=== PATIENT | female | born 1950 | race African-American/Black ===

== ENCOUNTER 2018-11-06 23:59 | Observation (INO) | payer MEDICARE, OTHER ==
[~2018-11-06] VITALS: Ht 162.6 cm; Wt 102.5 kg
[~2018-11-06 23:59] MED LIST: HYDROCODONE-AP1 EAC1 PO; INDERAL LA160 M1 PO; LORATADINE10 M2 PO; Z B COMPLEX PO; Z LORATADINE; Z VITAMIN D PO; Z.0.AMLODIPINE BESYL PO; Z.0.DIOVAN HCT 3201 PO; Z.0.TIZANIDINE HCL4 PO; Z.2.HYDROCODON-ACE1
[2018-11-07] VITALS (8 sets, daily range): BP systolic 100–142; BP diastolic 49–75
--- NOTE | 2018-11-07 01:48 | Diagnostic Imaging Report ---
EXAM: CHEST 2 VIEWS, PA and lateral INDICATION: Chest pain, shortness of breath COMPARISON: None FINDINGS: LINES/TUBES: None LUNGS: No consolidations or edema. PLEURA: No effusions or pneumothorax. HEART AND MEDIASTINUM: Normal size and contour. BONES AND SOFT TISSUES: No acute findings. IMPRESSION: No acute thoracic abnormality. Signed by: Dr. Ekta Donaldson M.D. on 11/07/2018 1:45 AM
[2018-11-07 02:26] LABS: INR 0.92; PROTHROMBIN TIME 13.2 seconds (11.9-14.5)
[2018-11-07 02:27] LABS: PARTIAL THROMBOPLASTIN TIME 31.9 seconds (23.8-35.5)
[2018-11-07 02:35] LABS: ALANINE AMINOTRANSFERASE 12 IU/L (0-55); ALBUMIN 3.6 g/dL (3.5-5.0); ALKALINE PHOSPHATASE 67 IU/L (40-150); BLOOD UREA NITROGEN 21 mg/dL (7-26); BUN/CREATININE RATIO 19 (6-25); CALCIUM 9.4 mg/dL (8.4-10.2); CARBON DIOXIDE 26 mmol/L (22-29); CREATINE KINASE 85 IU/L (29-168); CREATININE, SERUM 1.08 mg/dL (0.57-1.11); EST GLOMERULAR FILTRATION RATE > 60 ML/MIN (60-); GLUCOSE 101 mg/dL (74-118); LIPASE 10 U/L (8-78)
[2018-11-07] MEDS ORDERED: ASPIRIN 81 MG CHEW TAB PO ONE (02:45)
[2018-11-07 02:46] LABS: BASOPHILS % 0.4 % (0.0-1.0); EOSINOPHILS # (AUTO) 0.2 (0.0-0.4); HEMATOCRIT 37.9 % (34.2-44.1); HEMOGLOBIN 12.2 g/dL (12.0-16.0); LYMPHOCYTES % 21.1 % (18.0-39.1); MEAN CORPUSCULAR HEMOGLOBIN 26.2 pg (28-32); MEAN CORPUSCULAR HGB CONC 32.2 g/dL (31-35); MEAN CORPUSCULAR VOLUME 81.5 fL (81-99); MONOCYTES # (AUTO) 0.8 (0.2-0.8); MONOCYTES % 8.8 % (4.4-11.3); NEUTROPHILS # (AUTO) 6.4 (2.1-6.9); NEUTROPHILS % 66.8 % (38.7-80.0); PLATELET COUNT 208 x10e3/uL (140-360); RED BLOOD COUNT 4.65 x10e6/uL (3.6-5.1); RED CELL DISTRIBUTION WIDTH 15.2 % (11.7-14.4)
[2018-11-07 03:00] LABS: ANION GAP 16.2 mmol/L (8-16); CHLORIDE 104 mmol/L (98-107); MAGNESIUM 2.5 MG/DL (1.3-2.1); POTASSIUM 4.2 mmol/L (3.5-5.1); SODIUM 141 mmol/L (136-145)
[2018-11-07 03:20] LABS: BACTERIA,URINE MODERATE /HPF; BILIRUBIN,URINE NEGATIVE (NEGATIVE); CLARITY,URINE CLEAR (CLEAR); COLOR,URINE YELLOW (YELLOW); EPITHELIAL CELLS,URINE MODERATE /LPF; KETONES,URINE NEGATIVE (NEGATIVE); LEUKOCYTE ESTERASE ,URINE NEGATIVE (NEGATIVE); NITRITE,URINE NEGATIVE (NEGATIVE); PROTEIN,URINE DIPSTICK NEGATIVE (NEGATIVE); URINE UROBILINOGEN 0.2 mg/dL (0.2 - 1); WBC,URINE (MAN) 0-5 /HPF (0-5)
[2018-11-07 03:21] LABS: MUCUS,URINE MODERATE (RARE)
[2018-11-07] MEDS ORDERED: ENOXAPARIN SODIUM INJ 100 MG/ML SYR SC ONE (03:45)
[2018-11-07] MEDS ORDERED: ONDANSETRON HCL INJ 2MG/ML 2ML 2 MG/ML VIAL IV PRN (04:00)
--- OUTSIDE RECORDS SUMMARY | 2018-11-07 04:14 | XMS REPORT ---
Author [facility] Address Unknown Phone Unavailable Care Team Providers Care Drupal Web Developer Name Role Phone Sun DORMAN Unavailable Unavailable Problems This patient has no known problems. Allergies, Adverse Reactions, Alerts This patient has no known allergies or adverse reactions. Medications This patient has no known medications. Results Test Description Test Time Test Comments Text Results Atomic Results Result Comments CHEST 2 VIEWS 2018-11-07 01:44:00 [place] [address] Patient Name: EBONY HIDALGO MR #: [id number] : 1950 Age/Sex: 68/F Req #: [id number] Adm Physician: Ordered by: BELL DORMAN MD Report #: [id number] Location: ER Room/Bed: Procedure: [id number] DX/CHEST 2 VIEWS Exam Date: Exam Time: REPORT STATUS: Signed EXAM: CHEST 2 VIEWS, PA and lateral INDICATION: Chest pain, shortness of breath COMPARISON: None FINDINGS: LINES/TUBES: None LUNGS: No consolidations or edema. PLEURA: No effusions or pneumothorax. HEART AND MEDIASTINUM: Normal size and contour. BONES AND SOFT TISSUES: No acute findings. IMPRESSION: No acute thoracic abnormality. Signed by: Dr. Antonio Scott M.D. on 11/07/2018 1:45 AM Dictated By: ANTONIO SCOTT MD 4 Transcribed By: LYDIA on 11/07/18144 COPY TO: BELL DORMAN MD
[2018-11-07] MEDS: NITROGLYCERIN 0.4 MG SUBL SL PRN (04:25)
--- NOTE | 2018-11-07 05:16 | NUR ---
RECEIVED PT BY STRETCHER TO ROOM 114. PT IS AAOX3, RR EVEN AND NON-LABORED, ON RA. PT REPORTS SHE FEEL ANXIOUS AT THIS TIME JUST WANTS TO KNOW WHY THIS IS HAPPENING. ORIENTED PT TO HOSPITAL ROOM, CALL LIGHT, PHONE, BED CONTROLS AND LIGHTS. PROVIDED PT WITH SANDWICH AND CRANBERRY JUICE. LEFT PT LAYING SEMI FOWLERS IN BED, BED IN LOW LOCKED POSITION, SIDE RAILS UPX2, CALL LIGHT AND PHONE WITHIN REACH.
[2018-11-07] MEDS ORDERED: HYZAAR 100-251 EACH PO (06:04)
[2018-11-07] MEDS ORDERED: PEPCID20 MG PO (06:04)
[2018-11-07] MEDS ORDERED: VITAMIN D31000 UNIT PO (06:04)
[2018-11-07] MEDS: ASPIRIN 81 MG ENTERIC COATED PO SCH (09:34)
[2018-11-07] MEDS: FAMOTIDINE 20 MG/2 ML VIAL IV SCH ×2 (09:34→20:05)
--- NOTE | 2018-11-07 09:40 | NUR ---
Patient alert and responsive, VSS, continuous on Tele monitoring, denies further chest pains, ECHO being done at this time, call light within reach, will monitor.
[2018-11-07 11:15] LABS: CREATINE KINASE 70 IU/L (29-168)
--- NOTE | 2018-11-07 14:01 | NUR ---
Patient seen by Dr. Mcguire and orders in place to consult cardiology, notified GAVIN Moctezuma covering for the weekend and will see patient tomorrow.
--- NOTE | 2018-11-07 17:41 | History and Physical ---
PRIMARY CARE SYSTEM: [facility]. HOSPITAL COVERAGE: Dr. Dowd. CHIEF COMPLAINT: Chest pain. HISTORY: Ms. Suarez is a pleasant 68-year-old female with chest pain. Patient has had evaluations in the past. Patient had a 2012 evaluation here at [facility] for the same. Patient claims the last stress test was some time in mid 2016. Patient has never had heart catheterization that she can recall. Patient started to have on and off chest pain. She went to her doctor for this and he recommended further evaluation. However, configuration management manager back the patient persisted to have more of the chest pain. The patient is recommended to go to the emergency room for emergent evaluation. Patient claims chest pains can occur at rest. They can occur on activity. No clear associated factor. PAST MEDICAL HISTORY: Hypertension, appendectomy, hysterectomy, knee surgery. MEDICATIONS: Medication list reviewed per electronic record. ALLERGIES: TRAMADOL AND NAPROXEN. SOCIAL HISTORY: Patient does not smoke, does not drink, does not do drugs. Patient lives at home. FAMILY HISTORY: Noncontributory to this condition. REVIEW OF SYSTEMS GENERAL: No weight changes. OPHTHALMOLOGIC: No double vision. ENT: No dry mouth. ENDOCRINE: No known thyroid disease in the past. PULMONARY: No asthma. CARDIAC: No prior MT. NEUROLOGIC: No seizures. MUSCULOSKELETAL: Mild arthritis. DERMATOLOGIC: No rashes. PSYCHIATRIC: No depression. OBJECTIVE VITAL SIGNS: Afebrile. Vital signs noted recorded per electronic record. GENERAL: In no acute distress, alert and calm. HEENT: Normocephalic, atraumatic. NECK: Supple. Throat midline. LUNGS: Bilateral air entry, mostly clear. CARDIOVASCULAR: S1, S2. No murmurs, rubs, or gallops. ABDOMEN: Soft, nontender. EXTREMITIES: No clubbing, no cyanosis. There is no edema. INTEGUMENT: No rash or purpura. LABS: Potassium 4.2, BUN 21, creatinine 1.1. White count 9.6, hematocrit 38, platelets 208. Chest x-ray, no acute thoracic abnormality. IMPRESSION AND PLAN 1. Chest pain, atypical but intermittent and recurrent. 2. Hypertension. 3. Risk factor of age. 4. Obesity. Admit to [facility]. Patient will have telemetry. Serial cardiac enzymes. Cardiac consultation to consider stress testing versus alternative cardiac catheterization. Chest lipid panel. Will followup closely. Thank you very much Ny for allowing Dr. Dowd and I the chance to participate in the care of Ms. Suarez. Do not hesitate to contact us if we could help in any way. Job#: [id number] MAK
[2018-11-07 18:30] LABS: CREATINE KINASE MB 0.5 ng/mL (0-5.0)
--- NOTE | 2018-11-07 19:08 | NUR ---
WALKING ROUNDS PERFORMED, RECEIVED PT SITTING ON SIDE OF BED, AAOX3, RR EVEN AND NON-LABORED, ON RA. NO S/SX OF DISTRESS NOTED. LEFT PT SITTING ON SIDE OF BED, BED IN LOW LOCKED POSITION, SIDE RAILS UPX2, CALL LIGHT AND PHONE WITHIN REACH.
--- NOTE | 2018-11-07 19:32 | NUR ---
SPOKE WITH MD HOLDEN CONCERNING PT REQUEST FOR SLEEP AID. NEW ORDERS RECEIVED.
[2018-11-07] MEDS: DIPHENHYDRAMINE HCL 25 MG CAP PO PRN (21:20)
[2018-11-08] VITALS (10 sets, daily range): BP systolic 104–137; BP diastolic 55–65
[2018-11-08] MEDS: NITROGLYCERIN 0.4 MG SUBL SL PRN ×2 (04:52→04:57)
--- NOTE | 2018-11-08 05:06 | NUR ---
SPOKE WITH MD WILD CONCERNING PT REPORTS OF CHEST PAIN THAT RADIATED TO (L) UPPER CHEST. PT RECEIVED X2 DOSES OF NITRO BEFORE PAIN RELIEF. EKG OBTAINED DURING EPISODE OF PAIN. NO NEW ORDERS RECEIVED FROM MD WILD.
[2018-11-08 06:38] LABS: CHOL/HDL RATIO 3.5 (3.0-3.6)
[2018-11-08 06:48] LABS: CREATINE KINASE 67 IU/L (29-168)
--- NOTE | 2018-11-08 07:19 | NUR ---
Patient alert and responsive, continues on Tele monitoring and sleeping during rounds, observed respirations and no observable distress, call light within reach and will monitor.
[2018-11-08] MEDS: ASPIRIN 81 MG ENTERIC COATED PO SCH (09:05)
[2018-11-08] MEDS: FAMOTIDINE 20 MG/2 ML VIAL IV SCH ×2 (09:05→21:25)
--- NOTE | 2018-11-08 09:31 | NUR ---
Patient seen by cardiology and plans is to complete a stress test tomorrow and Dr. Lynn will schedule a time
--- NOTE | 2018-11-08 12:37 | NUR ---
Offered consent to patient, reinforced explaining procedure to be done and patient reviewing consent for at this time
--- NOTE | 2018-11-08 13:02 | Consultation ---
DATE OF CONSULTATION: CARDIOLOGY CONSULTATION REASON FOR CONSULTATION: Chest pain. CONSULTING PHYSICIAN: Dr. Mcguire. HISTORY OF PRESENT ILLNESS: Ms. Suarez is a 68-year-old -[place] female that reports that she has been experiencing chest pain for the last 2 weeks; however, she came into the ER because the chest pains were persistent and not improving. She describes this pain as a constant pain that is in her substernal region that sometimes radiates to her back and also at times is worse with shortness of breath. This pain is not provoked by exertion; however, it is there with exertion and also at the times of rest. She has a pertinent past medical history of hypertension, otherwise has been healthy up until now. Denies any fever, chills, nausea, vomiting, dyspnea on exertion, dizziness, syncope, palpitations, or dysuria. REVIEW OF SYSTEMS: Negative except as mentioned above. PAST MEDICAL HISTORY: Hypertension. PAST SURGICAL HISTORY: Appendectomy, hysterectomy, knee surgery. ALLERGIES: PER ELECTRONIC CHART. SOCIAL HISTORY: She does not smoke or drink and lives at home. FAMILY HISTORY: Noncontributory. PHYSICAL EXAMINATION VITAL SIGNS: Temperature 97.5, pulse 62, respiratory rate 18, blood pressure 137/65, oxygen saturation 98% on room air. GENERAL: Alert and oriented x3, resting comfortably on the side of the bed, does not appear to be in any acute distress. LUNGS: Clear to auscultation throughout. No wheezing. No rhonchi or crackles. NECK: Supple. No JVD noted. CARDIOVASCULAR: Regular rate and rhythm. Normal S1, S2. No S3 or S4 noted. Chest pain able to be provoked with palpation. ABDOMEN: Rounded, soft, nontender. LOWER EXTREMITIES: No edema, 2+ pedal pulses. CARDIOVASCULAR MEDICATIONS: Aspirin 81 mg p.o. daily. LABS: Yesterday, WBC 9.60, hemoglobin 12.2, hematocrit 37.9, platelets 208. Creatinine kinase 67, CK-MB 0.40, troponin less than 0.001. Total cholesterol 156, LDL 98, HDL 44. IMAGING: Chest x-ray on admission with no acute thoracic abnormalities. TELEMETRY: Sinus rhythm. IMPRESSION 1. Atypical chest pain. 2. Chest pain likely musculoskeletal. 3. Hypertension. 4. Obesity. RECOMMENDATIONS: Maintain on telemetry at this time. Cardiac enzymes have been negative so far and acute coronary syndrome has been ruled out. Continue aspirin for now. Plans for stress test tomorrow. If stress test is negative, consider an anti-inflammatory. We will continue to monitor this patient very closely. Thank you Dr. Mcguire for letting us participate in this patient's care. Dictated by: Jacey Moctezuma NP Job#: [id number] ANA
--- NOTE | 2018-11-08 15:21 | Progress Note ---
DATE: November 08, 2018 INTERNAL MEDICINE PROGRESS NOTE COVERAGE FOR: Dr. Reymundo Dowd. SUBJECTIVE: Ms. Suarez was seen and examined at the bedside. She continues to have steady progress. She has little bit less pain, although it still is occurring. She does have some chest soreness. She says that is different than the pain she came in with. Patient is eating although she does not really like the food that much. No fevers. REVIEW OF SYSTEMS: No headaches. No rash. OBJECTIVE VITAL SIGNS: Afebrile. Vital signs noted per electronic record. GENERAL: In no acute distress, alert and calm. HEENT: Normocephalic, atraumatic. NECK: Supple. Throat midline. LUNGS: Bilateral air entry, clear. CARDIOVASCULAR: S1, S2. No murmurs, rubs, or gallops. ABDOMEN: Soft, nontender. EXTREMITIES: No clubbing. No cyanosis. There is no significant edema. INTEGUMENT: No rash. No purpura. IMPRESSION 1. Atypical chest pain. 2. Hypertension. 3. Obesity. 4. Risk factor of age. PLAN: Cardiology saw the patient today. They have agreed for a stress test for tomorrow since it is late. We will continue cardiac medications in the interim as well as we will give GI medicines for possibility of GI pain. Job#: [id number] TESSA
--- NOTE | 2018-11-08 20:10 | NUR ---
PT TRANSPORTED BY WHEELCHAIR TO RADIOLOGY FOR PRE-STRESS TEST IMAGING.
[2018-11-08] MEDS: DIPHENHYDRAMINE HCL 25 MG CAP PO PRN (21:25)
[2018-11-09] VITALS (7 sets, daily range): BP systolic 127–183; BP diastolic 59–79
--- NOTE | 2018-11-09 07:13 | NUR ---
Received patient and walking rounds complete. Patient awake resting in bed at this time, no signs of distress noted. Bed in lowest position, wheels locked, side rails up x2, call light in reach. Will continue to monitor.
[2018-11-09] MEDS: ASPIRIN 81 MG ENTERIC COATED PO SCH (09:00)
[2018-11-09] MEDS: FAMOTIDINE 20 MG/2 ML VIAL IV SCH ×2 (09:10→21:00)
--- NOTE | 2018-11-09 10:00 | NUR ---
Patient A/O X3, even respirations on room air unlabored. Bowel sounds present, last BM yesterday. No complaints of pain at this time. Patient is ambulatory. Skin is intact. On Tele #22 SR/SB. Will continue to monitor.
[2018-11-09] MEDS ORDERED: REGADENOSON 0.4 MG/5 ML SYR IV ONE (10:41)
--- NOTE | 2018-11-09 10:54 | NUR ---
Patient went to stress test at this time.
--- NOTE | 2018-11-09 11:49 | NUR ---
Patient returned from stress test via wheelchair. No signs of distress at this time.
--- NOTE | 2018-11-09 14:47 | NUR ---
Patient left to nuclear medicine. No signs of distress.
--- NOTE | 2018-11-09 15:24 | NUR ---
Patient returned from nuclear medicine. No signs of distress.
--- NOTE | 2018-11-09 17:20 | Cardiology Report ---
DATE OF STUDY: November 09, 2018 NUCLEAR STRESS REPORT PROCEDURE TITLE: Rest/stress single isotope SPECT imaging with pharmacologic stress and gated SPECT imaging. INDICATIONS: Chest pain. PROCEDURE: Pharmacologic stress was performed with regadenoson per protocol. The heart rate was 80 beats per minute at rest and increased to 112 beats per minute during the regadenoson infusion. The rest blood pressure was 164/61 and increased to 170/33 mmHg, which is a normal response. The resting electrocardiogram demonstrated sinus rhythm. There were no ST segment changes suggestive of myocardial ischemia. PVCs were noted during recovery. Myocardia perfusion imaging was performed at rest following the injection of 11 mCi of tetrofosmin. At peak exercise, the patient was injected with 33 mCi of tetrofosmin. Gated post rest tomographic imaging was performed. FINDINGS: The overall quality of study is fair. Left ventricular cavity is noted to be normal size on the rest and stress studies. SPECT images demonstrate homogenous tracer distribution throughout the myocardium. Gated SPECT imaging reveals normal myocardial thickening and wall motion. The left ventricular ejection fraction is calculated to be 70%. IMPRESSION: Myocardial perfusion imaging is normal. Overall left ventricular systolic function was normal without regional wall motion abnormalities. Job#: [id number] PIERO
--- NOTE | 2018-11-09 20:00 | NUR ---
PT SITTING UP IN CHAIR, FAMILY AT BEDSIDE, VS STABLE, NO DISTRESS NOTED, TELE BOX ON PT, IV TO LEFT FOREARM LEAKING, NO EDEMA NOTED, NO CHEST PAIN NOTED, CALL LIGHT IN REACH
--- NOTE | 2018-11-09 21:53 | NUR ---
22G RIGHT WRIST PLACED X 1 ATTEMPT PER PROTOCOL, IV TO LEFT FOREARM D/C'D
[2018-11-10] VITALS: BP 156/67
--- NOTE | 2018-11-10 00:26 | Progress Note ---
DATE: November 09, 2018 CARDIOLOGY PROGRESS NOTE SUBJECTIVE: No major events overnight. Had a nuclear stress test today which showed normal perfusion. OBJECTIVE VITAL SIGNS: Temperature 96.2, pulse 64, respiratory rate 20, blood pressure 149/66, and satting 95% on room air. GENERAL: female, no acute distress. CARDIOVASCULAR: Regular rate and rhythm. No murmurs, rubs, or gallops. Palpable carotid pulses. Palpable radial pulses. LUNGS: Clear to auscultation bilaterally. ABDOMEN: Obese, soft, nontender, and nondistended. NEURO AND PSYCH: Alert and oriented to person, place, and time. Normal affect. CARDIOVASCULAR MEDICATIONS: Reviewed. LABORATORY DATA: Reviewed. TELEMETRY DATA: Reviewed, shows normal sinus rhythm. IMAGING DATA: Reviewed. Nuclear stress test shows normal perfusion. ASSESSMENT 1. Hypertension. 2. Chest pain. 3. Obesity. RECOMMENDATIONS: Patient has been ruled out for acute PA with serial troponins and stress test showed normal perfusion. Patient is low risk and is okay to be discharged from a cardiovascular standpoint. Thank you for this consult. We will continue to follow. Job#: [id number]
[2018-11-10 04:00] VITALS: BP 153/67
--- NOTE | 2018-11-10 05:43 | NUR ---
pt awake for vs, no needs or distress noted
--- NOTE | 2018-11-10 07:07 | NUR ---
Received patient and walking rounds complete. Patient awake resting in bed at this time no signs of distress. Bed in lowest position, wheels locked, side rails up x2, call light in reach.
[2018-11-10 07:57] VITALS: BP 131/60
[2018-11-10] MEDS: FAMOTIDINE 20 MG/2 ML VIAL IV SCH (08:44)
[2018-11-10] MEDS: ASPIRIN 81 MG ENTERIC COATED PO SCH (08:44)
--- NOTE | 2018-11-10 10:05 | NUR ---
Patient A/O x3, no signs of distress at this time. Even respirations on room air. No complaints of pain at this time. Patient is ambulatory. Voids in toilet, last bowel movement yesterday, bowel sounds present. Will continue to monitor.
[2018-11-10 11:06] VITALS: BP 131/60
[2018-11-10 11:50] VITALS: BP 150/67
--- NOTE | 2018-11-10 13:40 | NUR ---
Removed patients IV. Catheter tip intact and pressure dressing applied.
--- NOTE | 2018-11-10 13:45 | Discharge Summary ---
PRIMARY CARE DOCTOR: Dr. Abhinav Rodríguez with [facility] FINAL DIAGNOSIS: Atypical chest pain. SECONDARY DIAGNOSIS: Hypertension. PROCEDURES/STUDIES PERFORMED: Echocardiogram with normal EF. Stress test was unremarkable. MACHINE INSTALLER: Dr. Duque, cardiology. HISTORY: Per H and P. HOSPITAL COURSE: The patient's troponins were negative; therefore, no acute myocardial infarction. Her LDL is 98. Echocardiogram was done, which was unremarkable. Stress test was done as well, which was unremarkable. The patient still has some gradual dyspnea on exertion. My suspicion is it probably has something to do with her almost 39 body mass index. I have asked her to follow up with her primary care doctor in a week. If TSH has not been checked recently, consider to have it done. The patient was seen and examined today. CONDITION ON DISCHARGE: Stable. DISCHARGE MEDICATIONS: Please see medication reconciliation form. BILL VALIENTE M.D. Job#: [id number] cc: Abhinav Rodríguez MD
--- NOTE | 2018-11-10 14:30 | NUR ---
Patient discharged from facility. Left unit in wheelchair, went home via private auto. Patient gathered all personal belongings, discharge information and follow up information given to patient. No signs of distress during discharge.
== END 2018-11-10 14:30 | disposition home or self-care (01) ==
LOC: ER 23:59 → ERHOLD 11-07 04:12 → MED/SURG 11-07 05:13
PROVIDERS: ADMIT Internal Medicine; ATTEND Internal Medicine
DX: R07.89 Other chest pain (principal); I10 Essential (primary) hypertension; E66.9 Obesity, unspecified; Z82.49 Family history of ischemic heart disease and other diseases of the circulatory system; Z68.38 Body mass index [BMI] 38.0-38.9, adult; Z88.8 Allergy status to other drugs, medicaments and biological substances
CPT/HCPCS: 36415 ×2; 71046; 78452; 80053; 80061; 81001; 82550 ×2; 82553 ×2; 83690; 83735; 83880; 84484 ×2; 85025; 85610; 85730; 87086; 93005 ×2; 93017; 93306; 99284; A9502; G0378 ×4; J1650; J2785

== ENCOUNTER 2020-06-14 11:26 | Emergency (ER) | payer MEDICARE ==
[~2020-06-14] VITALS: Ht 160 cm; Wt 97.5 kg
[~2020-06-14 11:26] MED LIST changes: +HYZAAR 100-251 EACH PO; +PEPCID20 MG PO; +VITAMIN D31000 UNIT PO
[2020-06-14] MEDS ORDERED: AZITHROMYCIN500 MG PO (11:55)
[2020-06-14] MEDS ORDERED: PREDNISONE20 MG PO (11:55)
[2020-06-14] MEDS ORDERED: PROAIR HFA INH8.5 GM PO (11:55)
[2020-06-14] MEDS ORDERED: BROMFED DM COU118 ML PO (11:55)
[2020-06-14] MEDS ORDERED: CEFDINIR300 MG PO (11:55)
--- NOTE | 2020-06-14 11:56 | Emergency Department Note ---
History of Present Illnes History of Present Illness Chief Complaint: productive cough and wheezing History of Present Illness This is a 70 year old female. was doing well prior to this Historian: Patient Arrival Mode: Car History limited by: condition of the patient (normal) Motor Transport Inspector Required: No Onset (how long ago): day(s) (1) Location: see above Quality: see above Radiation: Reports non-radiation Severity: mild Onset quality: gradual Duration (how long): day(s) (1) Timing of current episode: intermittent Progression: unchanged Chronicity: new Context: Denies recent illness, Denies recent surgery, Denies recent immobilization, Denies recent travel, Denies trauma/injury, Denies new medications, Denies hx of DVT/PE, Denies non-compliance w/ medications Relieving factors: none Exacerbating factors: none Associated symptoms: Reports cough Treatments prior to arrival: none Past Medical/Family History Physician Review I have reviewed the patient's past medical and family history. Any updates have been documented here. Past Medical History Recent Fever: No Clinical Suspicion of Infectio: No New/Unexplained Change in Ment: No Past Medical History: Hypertension, GERD Past Surgical History: Appendectomy, Hysterectomy, Knee Replacement Other Surgery: BILATERAL TKA BUNIONECTOMY (R) HAND CARPAL TUNNEL SX Social History Smoking Cessation: Never Smoker Counseling Performed: No Any Illegal Drug Use: No TB Exposure/Symptoms: No Physically hurt or threatened: No Family History Family history of heart diseas: No Other Last Tetanus: UTD Any Pre-Existing Lines (PICC,: No Is patient up to date on immun: No Review of Systems Review of Systems Constitutional: Reports no symptoms EENTM: Reports no symptoms Cardiovascular: Reports no symptoms Respiratory: Reports as per HPI, Reports cough, Reports wheezing Gastrointestinal: Reports no symptoms Genitourinary: Reports no symptoms Musculoskeletal: Reports no symptoms Integumentary: Reports no symptoms Neurological: Reports no symptoms Psychological: Reports no symptoms Endocrine: Reports no symptoms Hematological/Lymphatic: Reports no symptoms Review of other systems: All other systems negative Physical Exam Related Data Allergies: Coded Allergies: tramadol (Verified Allergy, Mild, 11/07/18) naproxen (Verified Allergy, Unknown, 11/07/18) Vital signs reviewed: Yes Physical Exam CONSTITUTIONAL Constitutional: Present well-developed, Present well-nourished HENT HENT: Present normocephalic, Present atraumatic, Present oropharynx clear/moist, Present nose normal HENT L/R: Present left ext ear normal, Present right ext ear normal EYES Eyes: Reports PERRL, Reports conjunctivae normal NECK Neck: Present ROM normal, Present supple PULMONARY Pulmonary: Present effort normal, Present other (forced expiratory wheezes) CARDIOVASCULAR Cardiovascular: Present regular rhythm, Present heart sounds normal, Present intact distal pulses, Present capillary refill normal, Present normal rate GASTROINTESTINAL Abdominal: Present soft, Present nontender, Present bowel sounds normal GENITOURINARY Genitourinary: Present exam deferred SKIN Skin: Present warm, Present dry MUSCULOSKELETAL Musculoskeletal: Present ROM normal NEUROLOGICAL Neurological: Present alert, Present oriented x 3, Present no gross motor or sensory deficits PSYCHOLOGICAL Psychological: Present mood/affect normal, Present judgement normal Assessment & Plan Medical Decision Making MDM SEE BELOW Assessment & Plan Final Impression: (1) Acute bronchitis (2) Reactive airway disease Depart Disposition: HOME, SELF-intermediate Meds Active Scripts D-Methorphan Hb/P-Epd Hcl/Bpm (BROMFED DM COUGH SYRUP) 118 Ml Syrup, 10 ML PO Q4HR PRN for COUGH, #240 ML PRN COUGH(USE INHALER FIRST), CONGESTION AND OR ALLERGY SYMPTOMS Prov:PRABHJOT CANNONModesto GUNN 06/14/20 Cefdinir (OMNICEF) 300 Mg Capsule, 300 MG PO BID, #14 CAP Prov:CANNONREMYANABELLAGERSON GUNN 06/14/20 Azithromycin (AZITHROMYCIN) 500 Mg Tablet, 500 MG PO DAILY, #5 TAB Prov:DAVISANABELLAGERSON GUNN 06/14/20 Prednisone (PREDNISONE) 20 Mg Tab, 60 MG PO DAILY, #15 TAB TAKE ALL 3 PILLS AT ONCE Prov:CANNONREMYANABELLAGERSON GUNN 06/14/20 Albuterol Sulf* (PROAIR HFA INHALER*) 8.5 Gm Inh, 2 INH PO Q4HR PRN for SHORTNESS OF BREATH, #1 INH DISPENSE WITH SPACER. PRN COUGH, WHEEZING, SHORTNESS OF BREATH Prov:DAVISANABELLAGERSON GUNN 06/14/20 Reported Medications Losartan/Hydrochlorothiazide (HYZAAR 100-25 TABLET) 1 Each Tablet, 1 EA PO DAILY 11/07/18 Famotidine (PEPCID) 20 Mg Tablet, 20 MG PO BID PRN for INDIGESTION, #60 TAB 11/07/18 Cholecalciferol (Vitamin D3) (VITAMIN D3) 1,000 Unit Capsule, 1 EA PO DAILY 11/07/18 Propranolol Hcl (INDERAL LA) 160 Mg Cap.sa.24h, 1 CAP PO HS 05/28/12 ANABELLA CANNON Jun 14, 2020 11:56
--- OUTSIDE RECORDS SUMMARY | 2020-06-14 12:06 | XMS REPORT | Continuity of Care Document ---
Author Author [facility] t Organization [facility] Address [address] [place] [address] Phone Unavailable Care Team Providers Care Machine Shop Specialist Name Role Phone NONSTAFF PCP Unavailable Sun VALIENTE YICHING Attphys Unavailable Sun VALIENTE YICHING Admphys Unavailable Payers Payer Name Policy Type Policy Number Effective Date Expiration Date [place] [employer] Medicare Advantage [id number] 2018 00:00:00 [facility] Problems Condition Name Condition Details Condition Category Status Onset Date Resolution Date Last Treatment Date Treating Clinician Comments Source Chest pain Chest pain Problem Active C [facility] Allergies, Adverse Reactions, Alerts Allergy Name Allergy Type Status Severity Reaction(s) Onset Date Inacti ve Date Treating Clinician Comments Source tramadol DA Active [place] 2018-11-18 00:00:00 [facility] tramadol DA Active U 2018-11-17 00:00:00 [facility] No Known Drug Allergies DA Active U 2018-11-17 00:00:00 [facility] Naproxen Allergy to Substance Active 2018-11-07 00:00:00 [facility] Tramadol Allergy to Substance Active Mild 2018-11-07 00:00:00 [facility] No Known Contrast Allergies DA Active U 2005-03-16 00:00: 00 [facility] No Known Drug Allergies DA Active U 2005-03-16 00:00:00 [facility] No Known Food Allergies DA Active U 2005-03-16 00:00:00 [facility] No Known Other Allergies DA Active U 2005-03-16 00:00:00 [facility] Medications Ordered Medication Name Filled Medication Name Start Date Stop Da te Current Medication? Ordering Clinician Indication Dosage Frequency Signature (SIG) Comments Components Source Cholecalciferol (Vitamin D3) (Vitamin D3) 1,000 Unit C apsule Cholecalciferol (Vitamin D3) (Vitamin D3) 1,000 Unit Capsule Yes 1 Daily [facility] Famotidine (Pepcid) 20 Mg Tablet Famotidine (Pepcid) 20 Mg Tablet Yes 20 Twice A Day as needed for Indigestion [facility] Losartan/Hydrochlorothiazide (Hyzaar 100-25 Tablet) 1 Each Tablet Losartan/Hydrochlorothiazide (Hyzaar 100-25 Tablet) 1 Each Tablet Yes 1 Daily [facility] Propranolol Hcl (Inderal La) 160 Mg Cap.sa.24h Propran olol Hcl (Inderal La) 160 Mg Cap.sa.24h Yes 1 Bedtime [facility] Amlodipine Besylate 5 Mg Tablet, 5 Mg Oral Amlodipine Besylate 5 Mg Tablet, 5 Mg Oral 2018-11-07 00:00:00 No 5 Daily [facility] Hydrocodone Bit/Acetaminophen (Hydrocodo ne-Apap 10-325 Tablet) 1 Each Tablet, 1 Each Oral Hydrocodone Bit/Acetaminophen (Hydrocodo ne-Apap 10-325 Tablet) 1 Each Tablet, 1 Each Oral 2018-11-07 00:00:00 No 1 Every 6 Hours as needed [facility] Loratadine 10 Mg Tablet, 10 Mg Oral Loratadine 10 Mg Tablet, 10 Mg Oral 2018-11-07 00:00:00 No 10 Daily [facility] Tizanidine Hcl 4 Mg Capsule, 1 Tab Oral Tizanidine Hcl 4 Mg Capsule, 1 Tab Oral 2018-11-07 00:00:00 No 1 Every 6 Hours as n eeded [facility] Valsartan/Hydrochlorothiazide (Diovan Hc t 320-25 Mg Tablet) 1 Each Tablet, 1 Tab Oral Valsartan/Hydrochlorothiazide (Diovan Hc t 320-25 Mg Tablet) 1 Each Tablet, 1 Tab Oral 2018-11-07 00:00:00 No 1 Daily [facility] Vitamin B Complex (B Complex) 1 Each Capsule, 1 Each O ral Vitamin B Complex (B Complex) 1 Each Capsule, 1 Each Oral 2018-11-07 00:00:00 No 1 Daily [facility] Hydrocodone Bit/Acetaminophen (Hydrocodon-Acetaminoph 2.5-325) 1 Each Tablet, Hydrocodone Bit/Acetaminophen (Hydrocodon-Acetaminoph 2.5-325) 1 Each Tablet, 2012-05-28 00:00:00 [facility] Loratadine 1 Gm Powder, Loratadine 1 Gm Powder, 2012-05-28 00:00 :00 [facility] Procedures Procedure Date / Time Performed Performing Clinician [facility] e X-ray of chest, two views 2018-11-07 00:00:00 [facility] Encounters Start Date/Time End Date/Time Encounter [facility] ID Source 2018-11-07 04:12:00 2018-11-10 14:30:00 Admitted Inpatient (obs) 1 MABEL VALIENTENIKITA [facility] [id number] [facility] Results Test Description Test Time Test Comments Results Result Comments Source BASIC METABOLIC PANEL 2018-11-19 07:09:00 Test Item SODIUM (test code = NA) 144 mEq/L 134-147 N POTASSIUM (test code = K) 3.6 mEq/L 3.4-5.0 N CHLORIDE (test code = CL) 111 mEq/L 100-108 H CARBON DIOXIDE (test code = CO2) 27 mEq/L 21-33 N ANION GAP (test code = GAP) 10 0-20 N GLUCOSE (test code = GLU) 95 mg/dL 70-110 N BLOOD UREA NITROGEN (test code = BUN) 15 mg/dL 7-18 GLOMERULAR FILTRATION RATE (test code = GFR) 74.9 70-80 N Units of measure = ml/min/1.73 m2 CREATININE (test code = CREAT) 0.9 mg/dL 0.6-1.3 N CALCIUM (test code = CA) 8.2 mg/dL 8.0-10.5 N [id number] 07:09:00* Test Item Value Reference Range Interpretation Comments MAGNESIUM (test code = MAG) 2.00 mg/dL 1.8-2.4 N PROTHROMBIN [id number] 07:06:00* Test Item Value Reference Range Interpretation Comments PROTHROMBIN TIME PATIENT (test code = PTP) 14.7 SECONDS 9.3-12.9 H INTERNATIONAL NORMAL RATIO (test code = INR) 1.3 0.8-1.2 H TARGET INR BY INDICATION Indication INR1. Prophylaxis of venous thrombosis 2.0 - 3.0 (orthopedic surgery), Prophylaxis of venous thrombosis (other than high-risk surgery), Treatment of Deep Vein Thrombosis/Pulmonary Embolism, Prevention of systemic embolism - Tissue heart valves, Acute Myocardial Infarction (to prevent systemic embolism), Valvular heart disease, Atrial Fibrillation, Bileaflet mechanical valve in aortic position.2. Mechanical prosthetic valves (high risk), 2.5 - 3.5 Presence of Lupus Anticoagulant or Antiphospholipid Antibodies, Prevention of systemic embolism - Acute Myocardial Infarction (to prevent recurrent infarct). CBC W/AUTO [id number] 06:49:00* Test Item Value Reference Range Interpretation Comments WHITE BLOOD CELL (test code = WBC) 7.47 x10 3/uL 4.5-11.0 N RED BLOOD CELL (test code = RBC) 4.29 x10 6/uL 3.54-5.02 N HEMOGLOBIN (test code = HGB) 11.4 g/dL 11.0-15.0 N HEMATOCRIT (test code = HCT) 35.8 % 33.0-45.0 N MEAN CELL VOLUME (test code = MCV) 83.4 fL 81.0-99.0 N MEAN CELL HGB (test code = MCH) 26.6 pg 27.0-33.0 L MEAN CELL HGB CONCETRATION (test code = MCHC) 31.8 g/dL 33.0-37. 0 L RED CELL DISTRIBUTION WIDTH CV (test code = RDW) 15.1 % 11.5- 14.5 H RED CELL DISTRIBUTION WIDTH SD (test code = RDW-SD) 45.4 fL 37 .0-54.0 N PLATELET COUNT (test code = PLT) 193 x10 3/uL 150-400 N MEAN PLATELET VOLUME (test code = MPV) 11.4 fL 7.0-9.0 H NEUTROPHIL % (test code = NT%) 53.1 % 56.0-77.0 L IMMATURE GRANULOCYTE % (test code = IG%) 0.4 % 0.0-2.0 N LYMPHOCYTE % (test code = LY%) 35.7 % 14.0-32.0 H MONOCYTE % (test code = MO%) 7.5 % 4.8-9.0 N EOSINOPHIL % (test code = EO%) 2.8 % 0.3-3.7 N BASOPHIL % (test code = BA%) 0.5 % 0.0-2.0 N NUCLEATED RBC % (test code = NRBC%) 0.0 % 0-0 N NEUTROPHIL # (test code = NT#) 3.96 x10 3/uL 2.0-7.6 N IMMATURE GRANULOCYTE # (test code = IG#) 0.03 x10 3/uL 0.00-0.03 N LYMPHOCYTE # (test code = LY#) 2.67 x10 3/uL 1.0-3.8 N MONOCYTE # (test code = MO#) 0.56 x10 3/uL 0.1-0.8 N EOSINOPHIL # (test code = EO#) 0.21 x10 3/uL 0.0-0.2 H BASOPHIL # (test code = BA#) 0.04 x10 3/uL 0.0-0.2 N NUCLEATED RBC # (test code = NRBC#) 0.00 x10 3/uL 0.0-0.1 N MANUAL DIFF REQUIRED (test code = MDIFF) NO - DUP VEIN [id number] 15:45:00 Name: EBONY HIDALGO [facility] : 1950 Age/S: 68 / F [address] [place] [address] Unit #: [id number] Loc: [place] [address] Phys: Khari Manzanares MD Acct: [id number] Dis Date: Status: ADM IN PHONE #: [phone] Exam Date: 11/18/2018 1542 FAX #: [phone] Reason: dopplers of legs b/l, new onset afib EXAMS: CPT CODE: [id number] DUP VEIN EMELIA [id number] Patient Name: EBONY HIDALGO : 1950; Age: 68 years y/o Female MR: [id number] Study: - DUP VEIN EMELIA 11/18/2018 9:41 PM Ordering Physician: Khari Manzanares MD Clinical Indication: ; dopplers of legs b/l, new onset atrial fibrillation Comparison: None FINDINGS: Compression duplex ultrasound of both lower extremities was performed from the inguinal through the infrageniculate popliteal regions. The visualized superficial and deep veins are patent and compressible without evidence of intraluminal thrombus. Satisfactory spontaneous and augmented flow is demonstrated in the visualized segments. IMPRESSION: Negative bilateral lower extremity venous Doppler without evidence of deep vein thrombosis. SL: [id number] at 1542 Reported and signed by: Farshad Lehman M.D. CC: Khari Manzanares MD; Juve Awad MD; Abhinav Rodríguez MD Technologist: Ivory Whiteside Trnscb Date/Time: 11/18/2018 (1549) [email or web address] Orig Print D/T: S: 11/18/2018 (0692) Probe: PAGE 1 Signed Report BASIC METABOLIC [id number] 06:28:00* Test Item Value Reference Range Interpretation Comments SODIUM (test code = NA) 143 mEq/L 134-147 N POTASSIUM (test code = K) 3.2 mEq/L 3.4-5.0 L CHLORIDE (test code = CL) 109 mEq/L 100-108 H CARBON DIOXIDE (test code = CO2) 27 mEq/L 21-33 N ANION GAP (test code = GAP) 10 0-20 N GLUCOSE (test code = GLU) 90 mg/dL 70-110 N BLOOD UREA NITROGEN (test code = BUN) 29 mg/dL 7-18 H GLOMERULAR FILTRATION RATE (test code = GFR) 59.4 70-80 L Units of measure = ml/min/1.73 m2 CREATININE (test code = CREAT) 1.1 mg/dL 0.6-1.3 N CALCIUM (test code = CA) 8.8 mg/dL 8.0-10.5 N CBC W/AUTO [id number] 06:01:00* Test Item Value Reference Range Interpretation Comments WHITE BLOOD CELL (test code = WBC) 7.75 x10 3/uL 4.5-11.0 N RED BLOOD CELL (test code = RBC) 4.62 x10 6/uL 3.54-5.02 N HEMOGLOBIN (test code = HGB) 12.0 g/dL 11.0-15.0 N HEMATOCRIT (test code = HCT) 38.7 % 33.0-45.0 N MEAN CELL VOLUME (test code = MCV) 83.8 fL 81.0-99.0 N MEAN CELL HGB (test code = MCH) 26.0 pg 27.0-33.0 L MEAN CELL HGB CONCETRATION (test code = MCHC) 31.0 g/dL 33.0-37. 0 L RED CELL DISTRIBUTION WIDTH CV (test code = RDW) 14.7 % 11.5- 14.5 H RED CELL DISTRIBUTION WIDTH SD (test code = RDW-SD) 45.2 fL 37 .0-54.0 N PLATELET COUNT (test code = PLT) 204 x10 3/uL 150-400 N MEAN PLATELET VOLUME (test code = MPV) 12.0 fL 7.0-9.0 H NEUTROPHIL % (test code = NT%) 55.8 % 56.0-77.0 L IMMATURE GRANULOCYTE % (test code = IG%) 0.3 % 0.0-2.0 N LYMPHOCYTE % (test code = LY%) 33.0 % 14.0-32.0 H MONOCYTE % (test code = MO%) 8.3 % 4.8-9.0 N EOSINOPHIL % (test code = EO%) 2.2 % 0.3-3.7 N BASOPHIL % (test code = BA%) 0.4 % 0.0-2.0 N NUCLEATED RBC % (test code = NRBC%) 0.0 % 0-0 N NEUTROPHIL # (test code = NT#) 4.33 x10 3/uL 2.0-7.6 N IMMATURE GRANULOCYTE # (test code = IG#) 0.02 x10 3/uL 0.00-0.03 N LYMPHOCYTE # (test code = LY#) 2.56 x10 3/uL 1.0-3.8 N MONOCYTE # (test code = MO#) 0.64 x10 3/uL 0.1-0.8 N EOSINOPHIL # (test code = EO#) 0.17 x10 3/uL 0.0-0.2 N BASOPHIL # (test code = BA#) 0.03 x10 3/uL 0.0-0.2 N NUCLEATED RBC # (test code = NRBC#) 0.00 x10 3/uL 0.0-0.1 N MANUAL DIFF REQUIRED (test code = MDIFF) NO T4 [id number] 23:35:00* Test Item Value Reference Range Interpretation Comments T4 FREE (test code = T4F) 1.2 ng/dL 0.77-1.61 N COMMENTS: add to blood in labTHYROID STIMULATING [id number] 23:35:00* Test Item Value Reference Range Interpretation Comments THYROID STIMULATING HORMONE (test code = TSH) 0.79 0.42-5.4 7 N Results in mushtaq- International Units/mL COMMENTS: add to blood in [id number] 23:24:00* Test Item Value Reference Range Interpretation Comments TROPONIN-I (test code = TROPI) 0.072 ng/mL 0.000-0.045 HH Negative: <= 0.045 Positive: >= 0.046 Correlation with serial results, other cardiac markers andclinical findings is necessary to determine the clinicalsignificance of this result. Results using different methodologies should not be comparedto one another as quantitative results may vary by method. COMMENTS: 3 troponins total (including troponin done in ED)- CT ANGIO CHEST 2018-11-17 22:57:00 Name: EBONY HIDALGO [facility] : 1950 Age/S: 68 / F [address] [place] [address] Unit #: [id number] Loc: [place] [address] Phys: Khari Manzanares MD Acct: [id number] Dis Date: Status: ADM IN PHONE #: [phone] Exam Date: 11/17/2018 2240 FAX #: [phone] Reason: new onset afib. EXAMS: CPT CODE: [id number] CT ANGIO CHEST 15838 Procedure: CT Pulmonary Angiogram. Clinical Indication: New onset atrial fibrillation, tachycardia. Comparison: Chest radiograph 11/17/2018. TECHNIQUE: Sequential trans-axial images were obtained thru the chest and upper abdomen after administration of 100 cc Isovue 300 iodinated contrast. Coronal and sagittal MIP and 3D reconstructions were obtained (CT pulmonary angiogram). CT imaging performed at this location utilizes radiation dose optimization techniques which include one or more of the following: -Automated exposure control -Adjustment of the mA and/or kV according to patient size -Use of iterative reconstruction technique CT Radiation Dose DLP 362 mGy-cm FINDINGS: LUNG PARENCHYMA AND PLEURA: There are no lung nodules. No focal consolidation or significant interstitial lung disease is observed and no pleural effusion is identified. There is minimal dependent subsegmental atelectasis at the posterior lung bases. AIRWAY: The central airway is normal. . MEDIASTINUM: No significant mediastinal lymphadenopathy. HEART: There is no evidence of RV strain. The cardiac chambers are otherwise unremarkable. There is no pericardial effusion. Coronary artery calcifications are noted. VASCULAR STRUCTURES: There are no segmental pulmonary emboli noted. The main, right and left pulmonary arteries are normal. The great vessels are unremarkable. The thoracic aorta is is free of aneurysm or dissection. The superior vena cava is unremarkable. VISUALIZED UPPER ABDOMEN: The visualized upper abdomen is within normal limits. OSSEOUS STRUCTURES: Degenerative change involves the thoracic spine. IMPRESSION: 1. No evidence of pulmonary emboli. PAGE 1 Signed Report (CONTINUED) Name: EBONY HIDALGO [facility] : 1950 Age/S: 68 / F [address] [place] [address] Blvd Unit #: [id number] Loc: [place] [address] Phys: Hussein Manzanares MD Acct: [id number] Dis Date: Status: ADM IN PHONE #: [phone] Exam Date: 11/17/20182239 FAX #: Reason: new onset afib. EXAMS: CPT CODE: [id number] [place] [address] <Continued> 2. Minimal bibasilar subsegmental atelectasis. 3. Coronary artery calcifications. 4. Degenerative change. SL: [id number] at 7173 Reported and signed by: Anthony Martini M.D. CC: Khari Manzanares MD; Juve Awad MD; Abhinav Rodríguez MD Technologist:Deep Barroso RT(R) CTDI: DLP: Trnscb Date/Time: 11/17/2018 (7931) Randy.TDO Orig Print D/T: S: 11/17/2018 (0583) CTDI: DLP: PAGE 2 Signed Report LIPOPROTEIN [id number] 20:15:00 * Test Item Value Reference Range Interpretation Comments LIPOPROTEIN LDL (test code = LDL) 103 mg/dL 0-100 H <100 [id number] NEAR OPTIMAL/ABOVE [id number] HIGH>HL=876 VERY HIGH*Guidelines provided by the National Cholesterol EducationProgram Adult Treatment Panel III [id number] 20:03:00* Test Item Value Reference Range Interpretation Comments TROPONIN-I (test code = TROPI) 0.096 ng/mL 0.000-0.045 HH Negative: <= 0.045 Positive: >= 0.046 Correlation with serial results, other cardiac markers andclinical findings is necessary to determine the clinicalsignificance of this result. Results using different methodologies should not be comparedto one another as quantitative results may vary by method. COMMENTS: 3 troponins total (including troponin done in ED)COMPREHENSIVE METABOLIC [id number] 17:29:00* Test Item Value Reference Range Interpretation Comments SODIUM (test code = NA) 139 mEq/L 134-147 N POTASSIUM (test code = K) 3.5 mEq/L 3.4-5.0 N CHLORIDE (test code = CL) 107 mEq/L 100-108 N CARBON DIOXIDE (test code = CO2) 27 mEq/L 21-33 N ANION GAP (test code = GAP) 9 0-20 N GLUCOSE (test code = GLU) 90 mg/dL 70-110 N BLOOD UREA NITROGEN (test code = BUN) 35 mg/dL 7-18 H GLOMERULAR FILTRATION RATE (test code = GFR) 49.0 70-80 L Units of measure = ml/min/1.73 m2 CREATININE (test code = CREAT) 1.3 mg/dL 0.6-1.3 N TOTAL PROTEIN (test code = PROT) 7.2 g/dL 6.4-8.2 N ALBUMIN (test code = ALB) 3.40 g/dL 3.4-5.0 N CALCIUM (test code = CA) 8.5 mg/dL 8.0-10.5 N BILIRUBIN TOTAL (test code = BILT) 0.40 mg/dL 0.0-1.0 N SGOT/AST (test code = AST) 16 IUnit/L 15-37 N SGPT/ALT (test code = ALT) 16 IUnit/L 15-65 N ALKALINE PHOSPHATASE TOTAL (test code = ALKP) 81 IUnit/L 20-125 N [id number] 17:29:00* Test Item Value Reference Range Interpretation Comments MAGNESIUM (test code = MAG) 2.30 mg/dL 1.8-2.4 N COMPREHENSIVE METABOLIC [id number] 17:18:00* Test Item Value Reference Range Interpretation Comments SODIUM (test code = NA) 139 mEq/L 134-147 N POTASSIUM (test code = K) 3.5 mEq/L 3.4-5.0 N CHLORIDE (test code = CL) 107 mEq/L 100-108 N CARBON DIOXIDE (test code = CO2) 27 mEq/L 21-33 N ANION GAP (test code = GAP) 9 0-20 N GLUCOSE (test code = GLU) 90 mg/dL 70-110 N BLOOD UREA NITROGEN (test code = BUN) 35 mg/dL 7-18 H GLOMERULAR FILTRATION RATE (test code = GFR) 49.0 70-80 L Units of measure = ml/min/1.73 m2 CREATININE (test code = CREAT) 1.3 mg/dL 0.6-1.3 N TOTAL PROTEIN (test code = PROT) g/dL 6.4-8.2 ALBUMIN (test code = ALB) 3.40 g/dL 3.4-5.0 N CALCIUM (test code = CA) 8.5 mg/dL 8.0-10.5 N BILIRUBIN TOTAL (test code = BILT) mg/dL 0.0-1.0 SGOT/AST (test code = AST) 16 IUnit/L 15-37 N SGPT/ALT (test code = ALT) 16 IUnit/L 15-65 N ALKALINE PHOSPHATASE TOTAL (test code = ALKP) IUnit/L 20-125 [id number] 17:18:00* Test Item Value Reference Range Interpretation Comments MAGNESIUM (test code = MAG) 2.30 mg/dL 1.8-2.4 N CBC W/AUTO [id number] 17:06:00* Test Item Value Reference Range Interpretation Comments WHITE BLOOD CELL (test code = WBC) 8.19 x10 3/uL 4.5-11.0 N RED BLOOD CELL (test code = RBC) 4.85 x10 6/uL 3.54-5.02 N HEMOGLOBIN (test code = HGB) 12.5 g/dL 11.0-15.0 N HEMATOCRIT (test code = HCT) 40.7 % 33.0-45.0 N MEAN CELL VOLUME (test code = MCV) 83.9 fL 81.0-99.0 N MEAN CELL HGB (test code = MCH) 25.8 pg 27.0-33.0 L MEAN CELL HGB CONCETRATION (test code = MCHC) 30.7 g/dL 33.0-37. 0 L RED CELL DISTRIBUTION WIDTH CV (test code = RDW) 14.6 % 11.5- 14.5 H RED CELL DISTRIBUTION WIDTH SD (test code = RDW-SD) 44.9 fL 37 .0-54.0 N PLATELET COUNT (test code = PLT) 210 x10 3/uL 150-400 N MEAN PLATELET VOLUME (test code = MPV) 11.1 fL 7.0-9.0 H NEUTROPHIL % (test code = NT%) 58.3 % 56.0-77.0 N IMMATURE GRANULOCYTE % (test code = IG%) 0.2 % 0.0-2.0 N LYMPHOCYTE % (test code = LY%) 30.4 % 14.0-32.0 N MONOCYTE % (test code = MO%) 8.4 % 4.8-9.0 N EOSINOPHIL % (test code = EO%) 2.3 % 0.3-3.7 N BASOPHIL % (test code = BA%) 0.4 % 0.0-2.0 N NUCLEATED RBC % (test code = NRBC%) 0.0 % 0-0 N NEUTROPHIL # (test code = NT#) 4.77 x10 3/uL 2.0-7.6 N IMMATURE GRANULOCYTE # (test code = IG#) 0.02 x10 3/uL 0.00-0.03 N LYMPHOCYTE # (test code = LY#) 2.49 x10 3/uL 1.0-3.8 N MONOCYTE # (test code = MO#) 0.69 x10 3/uL 0.1-0.8 N EOSINOPHIL # (test code = EO#) 0.19 x10 3/uL 0.0-0.2 N BASOPHIL # (test code = BA#) 0.03 x10 3/uL 0.0-0.2 N NUCLEATED RBC # (test code = NRBC#) 0.00 x10 3/uL 0.0-0.1 N MANUAL DIFF REQUIRED (test code = MDIFF) NO - XR CHEST 1 [id number] 16:14:00 FAX: Mo Alexander MD [phone] [place]: St: REG Name: EBONY BARLOW [facility] : [birth year] Age/S: 68/F [address] [place] [address] Unit #: [id number] Loc: [place] [id number] Phys: Mo Alexander MD Acct: [id number] Dis Date: Status: REG ER PHONE #: [phone] Exam Date: 11/17/2018 1613 FAX #: [phone] Reason: tachycardia EXAMS: CPT CODE: [id number] XR CHEST 1 V 24039 1 view chest portable: HISTORY: Tachycardia. FINDINGS: Both lungs are clear. The heart and mediastinal contours are unremarkable. No pleural or bony pathology. IMPRESSION: No acute finding. SL: [id number] at 1614 Reported and signed by: Adrian Montano M.D. CC: Mo Alexander MD Technologist: RT Kinjal(Richa) Trnscrd Date/Time/By: 11/17/2018 (1614) : By: Amando Orig Print D /T: S: 11/17/2018 (3721) PAGE 1 S igned Report Stress Test - Treadmill ONLY 2018-11-09 16:45:00 [place] [address] Patient Name : EBONY HIDALGO MR #: [id number] : 1950 Age/Sex: 68/F Adm Physician : BILL VALIENTE MD Admit Date : 11/07/18 Location : MED/SURG Room/Bed : [facility] REPORT: Cardiology Report DATE OF STUDY: November 09, 2018 NUCLEAR STRESS RE PORT PROCEDURE TITLE: Rest/stress single isotope SPECT imaging with ph armacologic stress and gated SPECT imaging. INDICATIONS: Chest pain. PROCEDURE: Pharmacologic stress was performed with regadenoson per protocol. The heart rate was 80 beats per minute at rest and increased to 112 beats p er minute during the regadenoson infusion. The rest blood pressure was 164/6 1 and increased to 170/33 mmHg, which is a normal response. The resting elec trocardiogram demonstrated sinus rhythm. There were no ST segment changes sarmiento ggestive of myocardial ischemia. PVCs were noted during recovery. Myoca rdia perfusion imaging was performed at rest following the injection of 11 mC i of tetrofosmin. At peak exercise, the patient was injected with 33 mCi of tetrofosmin. Gated post rest tomographic imaging was performed. FINDINGS: The overall quality of study is fair. Left ventricular cavity is noted to be normal size on the rest and stress studies. SPECT images demonstrate homog enous tracer distribution throughout the myocardium. Gated SPECT imaging rev eals normal myocardial thickening and wall motion. The left ventricular ejec tion fraction is calculated to be 70%. IMPRESSION: Myocardial perfusion imaging is normal. Overall left ventricular systolic function was normal wi thout regional wall motion abnormalities. Job#: [id number] TA Signature Date Di ctated By: EUGENE NUÑEZ MD Transcribed By: NISH on 11/09/18 < Electronically signed by EUGENE NUÑEZ MD><<Signature on File>>11/15/18 2300 COPY TO: Creatine Kinase [id number] 07:02:00* Test Item Value Reference Range Interpretation Comments Creatine Kinase MB (test code = 15512-1) 0.40 0-5.0 [facility] [id number] 07:02:00* Test Item Value Reference Range Interpretation Comments Troponin I (test code = BUC4404) < 0.001 0-0.300 [facility] [id number] 06:48:00* Test Item Value Reference Range Interpretation Comments Creatine Kinase (test code = 2157-6) 67 29-168 [facility]ig[facility] [id number] 06:38:00* Test Item Value Reference Range Interpretation Comments Triglycerides Level (test code = 2571-8) 68 0-149 [facility] [id number] 06:38:00* Test Item Value Reference Range Interpretation Comments Cholesterol Level (test code = 2093-3) 156 0-199 Less than 200 mg/dL Low Bham300 - 239 mg/dL Borderline Xsym669 m g/dl and greater High Risk [facility] [id number] 06:38:00* Test Item Value Reference Range Interpretation Comments LDL Cholesterol (test code = 2089-1) 98 60-130 [facility] [id number] 06:38:00* Test Item Value Reference Range Interpretation Comments HDL Cholesterol (test code = 2085-9) 44 40-60 [facility]HDL [id number] 06:38:00 * Test Item Value Reference Range Interpretation Comments Cholesterol/HDL Ratio (test code = 9830-1) 3.5 3.0-3.6 [facility] [id number] 05:08:00* Test Item Value Reference Range Interpretation Comments B-Type Natriuretic Peptide (test code = 17525-6) 33.0 0-100 [facility] [id number] 03:21:00* Test Item Value Reference Range Interpretation Comments Urine Color (test code = 5778-6) YELLOW YELLOW [facility] [id number] 03:21:00* Test Item Value Reference Range Interpretation Comments Urine Clarity (test code = 07911-3) CLEAR CLEAR [facility] Specific Xlpicky0811-36-61 03:21:00 * Test Item Value Reference Range Interpretation Comments Urine Specific [place] (test code = 5811-5) 1.020 1.010-1.02 5 [facility] [id number] 03:21:00* Test Item Value Reference Range Interpretation Comments Urine pH (test code = 81477-1) 6.5 5-7 [facility] Leukocyte Ovhcnzoi6530-79-16 03:21:00* Test Item Value Reference Range Interpretation Comments Urine Leukocyte Esterase (test code = 5799-2) NEGATIVE NEGATIVE [facility] Ncjfhsh3402-06-08 03:21:00* Test Item Value Reference Range Interpretation Comments Urine Nitrite (test code = 42937-0) NEGATIVE NEGATIVE [facility] Rhzjqqt6408-16-13 03:21:00* Test Item Value Reference Range Interpretation Comments Urine Protein (test code = 5804-0) NEGATIVE NEGATIVE [facility] Glucose (UA)2018-11-07 03:21:00* Test Item Value Reference Range Interpretation Comments Urine Glucose (UA) (test code = 2349-9) NEGATIVE NEGATIVE [facility] Zhxrhpr0011-46-69 03:21:00* Test Item Value Reference Range Interpretation Comments Urine Ketones (test code = 30809-4) NEGATIVE NEGATIVE [facility] Degpqgxqdxag1493-00-57 03:21:00* Test Item Value Reference Range Interpretation Comments Urine Urobilinogen (test code = 02472-8) 0.2 0.2-1 [facility] Glkzauahc1585-05-12 03:21:00* Test Item Value Reference Range Interpretation Comments Urine Bilirubin (test code = 1978-6) NEGATIVE NEGATIVE [facility] Wlprk3742-28-80 03:21:00* Test Item Value Reference Range Interpretation Comments Urine Blood (test code = 53549-5) TRACE NEGATIVE H [facility] [id number] 03:21:00* Test Item Value Reference Range Interpretation Comments Urine WBC (test code = 5821-4) 0-5 0-5 [facility] [id number] 03:21:00* Test Item Value Reference Range Interpretation Comments Urine RBC (test code = 36919-6) 6-10 0-5 H [facility] Pnpsekpb0972-89-01 03:21:00* Test Item Value Reference Range Interpretation Comments Urine Bacteria (test code = 51237-2) MODERATE NONE H [facility] Epithelial Qrgpg6898-46-08 03:21:00 * Test Item Value Reference Range Interpretation Comments Urine Epithelial Cells (test code = 63800-1) MODERATE NONE [facility] Ejuet9468-77-44 03:21:00* Test Item Value Reference Range Interpretation Comments Urine Mucus (test code = 8247-9) MODERATE RARE [facility] Imqaq3262-04-58 03:02:00* Test Item Value Reference Range Interpretation Comments Sodium Level (test code = 2951-2) 141 136-145 [facility]Potassium Yntcg7813-40-17 03:02:00* Test Item Value Reference Range Interpretation Comments Potassium Level (test code = 2823-3) 4.2 3.5-5.1 [facility]landChloride Jttdn4681-57-17 03:02:00* Test Item Value Reference Range Interpretation Comments Chloride Level (test code = 2075-0) 104 98-107 [facility]landAnion Gwc6554-97-40 03:02:00* Test Item Value Reference Range Interpretation Comments Anion Gap (test code = 31930-7) 16.2 8-16 H [facility]landMagnesium Aiyxo4779-22-31 03:02:00* Test Item Value Reference Range Interpretation Comments Magnesium Level (test code = 97172-8) 2.5 1.3-2.1 H [facility]landWhite Blood Rvwao7718-29-94 02:49:00* Test Item Value Reference Range Interpretation Comments White Blood Count (test code = 6690-2) 9.60 4.8-10.8 [facility]landRed Blood Caknc0207-44-48 02:49:00* Test Item Value Reference Range Interpretation Comments Red Blood Count (test code = 789-8) 4.65 3.6-5.1 [facility]landHemoglobin2019-01-19 02:49:00* Test Item Value Reference Range Interpretation Comments Hemoglobin (test code = 22537-2) 12.2 12.0-16.0 [facility]landHematocrit2019-01-19 02:49:00* Test Item Value Reference Range Interpretation Comments Hematocrit (test code = 4544-3) 37.9 34.2-44.1 [facility]landMean Corpuscular Fxvvcb4892-24-38 02:49:00* Test Item Value Reference Range Interpretation Comments Mean Corpuscular Volume (test code = 787-2) 81.5 81-99 [facility]landMean Corpuscular Kdphifycvq5175-54-40 02:49:00* Test Item Value Reference Range Interpretation Comments Mean Corpuscular Hemoglobin (test code = 785-6) 26.2 28-32 L [facility]landMean Corpuscular Hemoglobin Concent 2018-11-07 02:49:00* Test Item Value Reference Range Interpretation Comments Mean Corpuscular Hemoglobin Concent (test code = 786-4) 32.2 31-35 [facility]landRed Cell Distribution Yfkcs0932-23-69 02:49:00* Test Item Value Reference Range Interpretation Comments Red Cell Distribution Width (test code = 43976-5) 15.2 11.7 -14.4 H [facility] PearlandPlatelet Samcn2872-67-07 02:49:00* Test Item Value Reference Range Interpretation Comments Platelet Count (test code = 777-3) 208 140-360 [facility]landNeutrophils (%) (Auto)2018-11-07 02:49:00 * Test Item Value Reference Range Interpretation Comments Neutrophils (%) (Auto) (test code = 11923-7) 66.8 38.7-80.0 [facility]landLymphocytes (%) (Auto)2018-11-07 02:49:00 * Test Item Value Reference Range Interpretation Comments Lymphocytes (%) (Auto) (test code = 736-9) 21.1 18.0-39.1 [facility]landMonocytes (%) (Auto)2018-11-07 02:49:00* Test Item Value Reference Range Interpretation Comments Monocytes (%) (Auto) (test code = 5905-5) 8.8 4.4-11.3 [facility]landEosinophils (%) (Auto)2018-11-07 02:49:00 * Test Item Value Reference Range Interpretation Comments Eosinophils (%) (Auto) (test code = 713-8) 2.0 0.0-6.0 [facility]landBasophils (%) (Auto)2018-11-07 02:49:00* Test Item Value Reference Range Interpretation Comments Basophils (%) (Auto) (test code = 706-2) 0.4 0.0-1.0 [facility]landIM GRANULOCYTES %2018-11-07 02:49:00* Test Item Value Reference Range Interpretation Comments IM GRANULOCYTES % (test code = IM GRANULOCYTES %) 0.9 0.0- 1.0 [facility]landNeutrophils # (Auto)2018-11-07 02:49:00* Test Item Value Reference Range Interpretation Comments Neutrophils # (Auto) (test code = 751-8) 6.4 2.1-6.9 [facility]landLymphocytes # (Auto)2018-11-07 02:49:00* Test Item Value Reference Range Interpretation Comments Lymphocytes # (Auto) (test code = 89084-9) 2.0 1.0-3.2 [facility]landMonocytes # (Auto)2018-11-07 02:49:00* Test Item Value Reference Range Interpretation Comments Monocytes # (Auto) (test code = 742-7) 0.8 0.2-0.8 [facility]landEosinophils # (Auto)2018-11-07 02:49:00* Test Item Value Reference Range Interpretation Comments Eosinophils # (Auto) (test code = 711-2) 0.2 0.0-0.4 [facility]landBasophils # (Auto)2018-11-07 02:49:00* Test Item Value Reference Range Interpretation Comments Basophils # (Auto) (test code = 704-7) 0.0 0.0-0.1 [facility] PearlandAbsolute Immature Granulocyte (auto 2018-11-07 02:49:00* Test Item Value Reference Range Interpretation Comments Absolute Immature Granulocyte (auto (michael t code = Absolute Immature Granulocyte (auto) 0.09 0-0.1 [facility]landProthrombin Gufn6135-67-27 02:48:00* Test Item Value Reference Range Interpretation Comments Prothrombin Time (test code = 5902-2) 13.2 11.9-14.5 [facility] PearlandProthromb Time International Ratio 2018-11-07 02:48:00* Test Item Value Reference Range Interpretation Comments Prothromb Time International Ratio (test code = 6301-6) 0.92 Oral Anticoagulant Therapy INR Values:1. Low Intensity Therapy 1.5 - 2.02 . Moderate Intensity Therapy 2.0 - 3.03. High Intensity Therapy(1) 2.5 - 3. 54. High Intensity Therapy(2) 3.0 - 4.05. Panic Value INR > 5.0 [facility] PearlandActivated Partial Thromboplast Time 2018-11-07 02:48:00* Test Item Value Reference Range Interpretation Comments Activated Partial Thromboplast Time (test code = 14374-5) 31.9 23.8-35.5 [facility] PearlandCarbon Dioxide Ehlcn8739-77-76 02:47:00* Test Item Value Reference Range Interpretation Comments Carbon Dioxide Level (test code = 2028-9) 26 22-29 [facility]landBlood Urea Nluyoben2077-14-62 02:47:00* Test Item Value Reference Range Interpretation Comments Blood Urea Nitrogen (test code = 3094-0) 21 05-14 [facility] PearlandCreatinine2019-01-19 02:47:00* Test Item Value Reference Range Interpretation Comments Creatinine (test code = 2160-0) 1.08 0.57-1.11 [facility]landBUN/Creatinine Vwtdn7483-49-92 02:47:00* Test Item Value Reference Range Interpretation Comments BUN/Creatinine Ratio (test code = 3097-3) 19 04-13 [facility] PearlandEstimat Glomerular Filtration Rate 2018-11-07 02:47:00* Test Item Value Reference Range Interpretation Comments Estimat Glomerular Filtration Rate (test code = 462548577) > 60 >60 Ranges were taken from the National Kidney Disease Education Program and the [facility] [employer] literature.Reference ranges:60 or greater: Rloibu67-69 ( for 3 consecutive months): Chronic kidney disease 15 or less: Kidney failureHCA [facility] Healthcare PearlandGlucose Zunno7795-78-98 02:47:00* Test Item Value Reference Range Interpretation Comments Glucose Level (test code = LYI6354) 101 74-118 [facility] PearlandCalcium Ipjrv2053-92-32 02:47:00* Test Item Value Reference Range Interpretation Comments Calcium Level (test code = 75233-1) 9.4 8.4-10.2 [facility] PearlandTotal Yvytcborc7954-73-53 02:47:00* Test Item Value Reference Range Interpretation Comments Total Bilirubin (test code = 1975-2) 0.5 0.2-1.2 [facility] PearlandAspartate Amino Transf (AST/SGOT) 2018-11-07 02:47:00* Test Item Value Reference Range Interpretation Comments Aspartate Amino Transf (AST/SGOT) (test code = Aspartate Amino Transf (AST/SGOT)) 23 5-34 [facility] PearlandAlanine Aminotransferase (ALT/SGPT) 2018-11-07 02:47:00* Test Item Value Reference Range Interpretation Comments Alanine Aminotransferase (ALT/SGPT) (test code = 1742-6) 12 0-55 [facility] PearlandTotal Tbclrpn5629-82-53 02:47:00* Test Item Value Reference Range Interpretation Comments Total Protein (test code = 2885-2) 7.2 6.5-8.1 [facility] PearlandAlbumin2019-01-19 02:47:00* Test Item Value Reference Range Interpretation Comments Albumin (test code = 1751-7) 3.6 3.5-5.0 [facility]landGlobulin2019-01-19 02:47:00* Test Item Value Reference Range Interpretation Comments Globulin (test code = 88525-2) 3.6 2.3-3.5 H [facility] PearlandAlbumin/Globulin Rkgur3582-95-80 02:47:00 * Test Item Value Reference Range Interpretation Comments Albumin/Globulin Ratio (test code = 1759-0) 1.0 0.8-2.0 [facility] PearlandAlkaline Hkusdgxxvcu2093-75-31 02:47:00* Test Item Value Reference Range Interpretation Comments Alkaline Phosphatase (test code = 6768-6) 67 40-150 [facility] PearlandLipase2019-01-19 02:47:00* Test Item Value Reference Range Interpretation Comments Lipase (test code = 3040-3) 10 8-78 [facility] PearlandCHEST 2 SFRYD2543-01-02 01:44:00 [place] [address] Patient Name: EBONY HIDALGO MR #: [id number] : 03/1950 Age/Sex: 68/F Req #: [id number] Adm Physician: Ordered by: BELL DORMAN MD Report #: [id number] Location: ER Room/Bed: Procedure: [id number] DX/CHEST 2 VIEWS Exam Date: Exam Time: REPORT STATUS: Signed EXAM: CHEST 2 VIEWS, PA and lateral INDICATION: Chest pain, shortness of breath COMPARISON: None FINDINGS: LINES/TUBES: None LUNGS: No consolidations or edema. PLEURA: No effusions or pneumothorax. HEART AND MEDIASTINUM: Normal size and contour. BONES AND SOFT TISSUES: No acute findings. IMPRESSION: No acute thoracic abnormality. Signed by: Dr. Antonio Donaldson M.D. on 11/07/2018 1:45 AM Dictated By: ANTONIO DONALDSON MD 4 Transcribed By: LYDIA on 11/07/18144 COPY TO: BELL DORMAN MD
[2020-06-14 12:10] VITALS: BP 151/73
== END 2020-06-14 12:05 | disposition home or self-care (01) ==
LOC: FSED 11:26
DX: J20.9 Acute bronchitis, unspecified (principal); J45.909 Unspecified asthma, uncomplicated; R05 Cough; I10 Essential (primary) hypertension; K21.9 Gastro-esophageal reflux disease without esophagitis; Z96.653 Presence of artificial knee joint, bilateral
CPT/HCPCS: 99282